=== PATIENT | female | born 1980 | race Caucasian/White ===

== ENCOUNTER → 2016-11-16 | Outpatient (CLI) | payer OTHER ==
[~2016-11-16] MED LIST: ACET50TA PO; BENA25CA2 PO; CITRTAB10 PO; DOCU10ELUD PO; FLINCHW9 PO; IBUP600T26 PO; MOM30SS PO; PERC5TAB6 PO; PRENTAB74 PO; VITA100037 PO; VITAMIN B 12 PO
--- NOTE | 2016-11-16 23:15 | REP ---
LEFT FOREARM, TWO VIEWS: There is no evidence of an acute fracture, dislocation or intrinsic bone disease. IMPRESSION: No fracture or dislocation. Signed by Harsha Justice MD 11/17/2016 03:22 P
--- NOTE | 2016-11-16 23:15 | REP ---
LEFT HAND, FOUR VIEWS: There is no evidence of an acute fracture, dislocation or intrinsic bone disease. IMPRESSION: No fracture or dislocation. Signed by Harsha Justice MD 11/17/2016 03:22 P
== END ==
LOC: M LRY 19:43
PROVIDERS: ATTEND Nurse Practitioner Family
DX: S59.912A Unspecified injury of left forearm, initial encounter (principal); X58.XXXA Exposure to other specified factors, initial encounter; Y92.9 Unspecified place or not applicable; Y93.9 Activity, unspecified; Y99.9 Unspecified external cause status